=== PATIENT | female | born 1980 ===

== ENCOUNTER → 2017-06-12 | Day surgery (SDC) | payer OTHER ==
[~2017-06-12] MED LIST: ORPH100T PO; ZOFRAN8 MG PO
== END | disposition home or self-care (01) ==
LOC: CIR.AMB 12:22
DX: O03.4 Incomplete spontaneous abortion without complication (principal)

== ENCOUNTER 2019-04-15 14:30 | Outpatient (CLI) | payer OTHER | END 2019-04-15 15:38 | disposition home or self-care (01) | LOC: NST 14:30 | DX: Z34.83 Encounter for supervision of other normal pregnancy, third trimester (principal) ==

== ENCOUNTER 2019-04-28 12:53 | Inpatient (IN) | payer OTHER ==
[~2019-04-28] VITALS: Ht 172.7 cm; Wt 1.8 kg
[2019-04-28] MEDS ORDERED: OBSTETRIX DHA1 EACH PO (15:21)
== END 2019-05-02 16:32 | disposition home or self-care (01) | DRG 786 ==
LOC: OBS/DEL 12:53 → NST 12:53 → OBS/DEL 14:07 → LDR 16:02 → OB/GYN 16:02
PROVIDERS: ADMIT Obstetrics & Gynecology
PROC: 4A1HXCZ Monitoring of Products of Conception, Cardiac Rate, External Approach (ICD-10-PCS; 2019-04-28)
PROC: BY4FZZZ Ultrasonography of Third Trimester, Single Fetus (ICD-10-PCS; 2019-04-28)
PROC: 4A033R1 Measurement of Arterial Saturation, Peripheral, Percutaneous Approach (ICD-10-PCS; 2019-04-29)
PROC: 10D00Z1 Extraction of Products of Conception, Low, Open Approach (ICD-10-PCS; principal; 2019-04-29 07:00)
DX: O76 Abnormality in fetal heart rate and rhythm complicating labor and delivery (principal); O60.14X0 Preterm labor third trimester with preterm delivery third trimester, not applicable or unspecified; Z3A.30 30 weeks gestation of pregnancy; Z37.0 Single live birth